=== PATIENT | male | born 1960 | race Caucasian/White ===

== ENCOUNTER 2025-07-07 11:00 | Emergency (ER) | payer MEDICARE ==
[2025-07-07] MEDS: Lidocaine 1% with EPINEPHrine 1:100,000 50 ML MDV SUBCUT STA (12:14)
[2025-07-07] MEDS: Bacitracin Oint 1 GM U/D Packet TOP ONE (12:14)
== END 2025-07-07 12:22 | disposition home or self-care (01) ==
LOC: JP.ED 11:00
DX: S61.412A Laceration without foreign body of left hand, initial encounter (principal); W45.8XXA Other foreign body or object entering through skin, initial encounter
CPT/HCPCS: 12002; 99282